=== PATIENT | male | born 1940 | race Caucasian/White ===

== ENCOUNTER 2019-08-10 17:43 | Inpatient (IN) ==
--- NOTE | 2019-08-10 18:37 | Emergency Department Note ---
Impression & Plan Difficulty with speech, Stroke-like symptoms ED Provider Note NAME: AIXA ALMODOVAR AGE: 78 SEX: M : 1940 ARRIVES VIA: Walk-In INFORMANT: [Patient] ED PROVIDER(S): [Chris Gonzalez MD] CHIEF COMPLAINT: Stroke symptoms HISTORY OF PRESENT ILLNESS: Patient is a 78-year-old male who presents with several episodes of strokelike symptoms. The patient states that 4 days ago for seconds, he had gibberish when he was speaking. This quickly resolved. No other associated symptoms. Patient states that 8 days ago he had a similar episode with his speech that lasted only seconds and then resolved. Patient states that 10 or 12 days ago he had an episode that lasted for a few seconds where he could not write. Again, this quickly resolved. The patient has never had a stroke. He was sent by his doctors office today for a stroke work-up. The patient has not had fever, cough or congestion. No shortness of breath. The patient does have chronic mild lower extremity edema, lef pain and some leg weakness chronically. He states that he stands for 8 hours at a time while at work and as result, his legs are always sore. He feels that his left leg may be slightly more weak than his right. The patient has not had vomiting or diarrhea, no urinary complaints. He is not on any blood thinners. He does admit that over the last few years he thinks he has become a more forgetful, he just cannot recall the names of things as quickly as he could when he was younger. REVIEW OF SYSTEMS: See HPI for pertinent positives and negatives. A total of ten systems were reviewed and were otherwise negative. PMHx/PSHx: See Below SOCIAL HISTORY: See Below. PHYSICAL EXAM: GENERAL: Patient is in no acute distress. HEENT: No acute trauma, normocephalic atraumatic, mucous membranes moist, no nasal congestion, no scleral icterus. NECK: No stridor, no adenopathy, no meningismus, trachea is midline. LUNGS: Clear to auscultation bilaterally, no wheeze, no rhonchi, breath sounds equal. HEART: Without murmurs gallops or rubs, regular rate and rhythm. ABDOMEN: Soft, nontender, bowel sounds positive, no hernias, no peritonitis. EXTREMITIES: No cyanosis, mild bilateral pedal edema, full range of motion of all the joints without pain or difficulty, no signs for acute trauma. NEUROLOGIC: Oriented x 3, no acute motor or sensory deficits, no focal weakness. No speech slur, no facial droop, no cerebellar dysfunction, no extremity drift. SKIN: No rash, no jaundice, no diaphoresis. DIFFERENTIAL DIAGNOSISInfection, dehydration, metabolic abnormality, hypo/hyperglycemia, stroke, TIA, electrolyte disturbance, anemia, hypoxia, cardiac sources, intracerebral event, toxicologic, neurologic, as well as other pathologies. EMERGENCY DEPARTMENT COURSE/PROCEDURES: ECG: Indication was possible stroke. The EKG shows a normal sinus rhythm with a rate of 77. There is no ST elevation, no PVCs. An old inferior infarct was noted. The QTc is 407. Continuous Cardiac Monitoring: An order was placed for continuous cardiac monitoring. The monitor shows a rate of 67 with normal sinus rhythm. MEDICAL DECISION MAKING: There is no leukocytosis or concerning anemia. No coagulopathy. No significant electrolyte abnormality or kidney failure. No worrisome liver enzyme elevation. EKG shows a sinus rhythm, no acute ischemia. Cardiac enzyme testing x1 is not consistent with acute cardiac injury. Brain MRI shows findings consistent with microvascular changes from aging, there was no acute stroke, no mass. On my exam, there were no focal neurologic findings. The patient was not febrile or toxic. Patient is currently asymptomatic. He has had 3 events though that sound consistent with TIA. I discussed the case with neurology on-call. They recommended a hospital stay and a full stroke work-up. Aspirin for now was the recommendation. I spoke to the patient, I talked with case management. The on-call hospitalist has been consulted. Patient is aware of all his findings thus far. Of note, the patient is clearly not a candidate for TPA. He is currently asymptomatic, his symptoms have been ongoing now for almost 2 weeks. 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 Beliefs That Will Affect Care: None Current Living Situation: Spouse Other Information That Helps Us Care for You: No Feels Safe at Home: Yes Safety Concerns: Feels Safe At This Time Smoking Status: Never smoker Hx Alcohol Use: No Hx Substance Use: No Allergies Allergies Allergy/AdvReac Type Severity Reaction Status Date / Time lisinopril AdvReac Mild COUGH Verified 08/10/19 18:36 Home Meds Home Medications Medication Instructions Recorded Confirmed calcium polycarbophil [Fiber 625 mg PO QAM 08/10/19 08/10/19 (calcium polycarbophil)] finasteride 5 mg PO QDD 08/10/19 08/10/19 hydrochlorothiazide 12.5 mg PO QDD 08/10/19 08/10/19 metoprolol succinate 25 mg PO QDD 08/10/19 08/10/19 multivitamin 1 tab PO QDD 08/10/19 08/10/19 terazosin 10 mg PO HS 08/10/19 08/10/19 Results & Data (ED) Vital Signs Vital Signs - 24 hr 08/10/19 17:47 08/10/19 18:51 08/10/19 20:43 Temperature 36.7 C Temperature Source Oral Pulse Rate 91 H 79 Pulse Rate [Apical] 69 Pulse Rate from SpO2 Sensor 78 Respiratory Rate 18 17 13 Blood Pressure 158/97 H 145/90 H Blood Pressure [Right Arm] 158/97 H Blood Pressure Mean 117 103 Blood Pressure Mean [Right Arm] 117 Pulse Oximetry 95 95 97 Oxygen Delivery Method Room Air Room Air Sepsis Recent Fever Within 48 Hours No Sepsis New/Unexplained Change in Mental Status No Sepsis Action Taken by Nursing No Action Required 08/10/19 21:52 Temperature Temperature Source Pulse Rate Pulse Rate [Apical] 66 Pulse Rate from SpO2 Sensor Respiratory Rate 14 Blood Pressure Blood Pressure [Right Arm] 136/94 Blood Pressure Mean Blood Pressure Mean [Right Arm] 108 Pulse Oximetry 94 Oxygen Delivery Method Room Air Sepsis Recent Fever Within 48 Hours Sepsis New/Unexplained Change in Mental Status Sepsis Action Taken by Alf Medications Current Medication List: was personally reviewed by me Laboratory Data Attestation: I reviewed the patient's lab results. Result diagrams: 08/10/19 18:50 08/10/19 18:50 Lab Results 08/10/19 08/10/19 08/10/19 Range/Units 18:50 18:50 18:50 WBC 7.65 (4.8-10.8) K/uL RBC 4.54 L (4.7-6.1) M/uL Hgb 13.3 L (14.0-18.0) g/dL Hct 40.0 L (42-52) % MCV 88.1 (80-100) fL MCH 29.3 (25-34) pg MCHC 33.3 (32-36) g/dL RDW Std Deviation 42.8 (36.4-46.3) fL RDW Coeff of Hugh 13.3 (11.5-14.5) % Plt Count 179 (130-400) K/uL MPV 9.9 (7.4-10.4) fL Immature Gran % (Auto) 0.3 % Neut % (Auto) 57.3 % Lymph % (Auto) 30.6 % [place] % (Auto) 7.3 % Eos % (Auto) 4.2 % Baso % (Auto) 0.3 % Immature Gran # (Auto) 0.02 (0.00-0.02) K/uL Neut # (Auto) 4.39 (1.4-6.5) K/uL Lymph # (Auto) 2.34 (1.2-3.4) K/uL [place] # (Auto) 0.56 (0.11-0.59) K/uL Eos # (Auto) 0.32 (0-0.5) K/uL Baso # (Auto) 0.02 (0-0.2) K/uL PT 10.9 (9.0-12.0) Seconds INR 1.0 (0.9-1.1) APTT 26.8 (21.0-31.0) Seconds PTT Ratio 1.0 Sodium 141 (136-145) mmol/L Potassium 3.8 (3.5-5.1) mmol/L Chloride 109 H (98-107) mmol/L Carbon Dioxide 27 (21-32) mmol/L Anion Gap 5.0 (3-11) BUN 32 H (7-18) mg/dl Creatinine 1.21 (0.6-1.4) mg/dl Est Cr Clr Drug Dosing 55.7 ml/min Est GFR ( Amer) 65.6 Est GFR (Non-Af Amer) 56.6 BUN/Creatinine Ratio 26.3 H (10-20) Glucose 109 H (70-99) mg/dl Calcium 9.0 (8.5-10.1) mg/dl Magnesium 2.4 (1.8-2.4) mg/dl Total Bilirubin 0.3 (0.2-1) mg/dl AST 38 H (15-37) U/L ALT 40 (12-78) U/L Alkaline Phosphatase 83 (45-117) U/L Troponin I < 0.015 (0-0.045) ng/ml Total Protein 7.6 (6.4-8.2) gm/dl Albumin 4.0 (3.4-5.0) gm/dl Globulin 3.6 (2.5-4.0) gm/dl Albumin/Globulin Ratio 1.1 (0.9-2) Administered Medications Sodium Chloride (Nss 1000ml) 1,000 mls @ 75 mls/hr IV .[id number] CRISPIN Stop: 09/09/19 23:40 Last Admin: 08/11/19 00:19 Dose: 75 mls/hr Documented by: [id number] Imaging Data Radiologist's Impression: MR brain wo con HISTORY: 78 years-old Male speech issues, writing issues, poss cva acute strokelike symptoms COMPARISON: None TECHNIQUE: Multiplanar multisequence MRI of the brain was obtained without the use of IV contrast. FINDINGS: Tree Surgeon Helper localizer images demonstrate no gross extracranial abnormality. There is no restricted diffusion to suggest acute or subacute infarct. Midline structures including the corpus callosum, brainstem, optic chiasm, pituitary and pineal glands appear unremarkable the sagittal T1 series. No cerebellar tonsillar herniation. No acute intracranial hemorrhage, midline shift, abnormal extra-axial collection, hydrocephalus or intracranial mass. Age-related involutional changes. Moderate T2/FLAIR hyperintensities throughout the white matter are suggestive of chronic microvascular ischemic disease. Major vascular flow voids are patent. Mastoid air cells are clear. Moderate mucosal thickening of the paranasal sinuses, most pronounced in the left frontal and sphenoid sinuses. Orbits, skull and soft tissues are unremarkable. IMPRESSION: 1. No acute intracranial abnormality, specifically there is no evidence of acute or subacute infarct. 2. Age-related involutional changes with moderate T2/FLAIR hyperintensities. Although nonspecific, these are suggestive of chronic microvascular ischemic disease. 3. Moderate paranasal sinus disease. Blood Pressure Blood Pressure Findings: Elevated blood pressure Blood Pressure Disposition: further management by hospitalist Discharge Plan Visit Data *Final* Discharge Date/Time: 08/10/19 23:20 Chief Complaint: Referred by Doctor Stated Complaint: MEMORY LOSS - LOSS OF WORDS ED Provider: Chris Gonzalez Discharge Problem: Difficulty with speech, Stroke-like symptoms Patient Disposition: Admitted As Inpatient Condition: Good Discharge Instructions Interventions: ED Discharge Assessment Last Done: 08/10/19 23:20
[2019-08-10 19:04] LABS: Basophils # (auto) 0.02 K/uL (0-0.2); Basophils % (auto) 0.3 %; Eosinophils # (auto) 0.32 K/uL (0-0.5); Eosinophils % (auto) 4.2 %; Hemoglobin 13.3 g/dL (14.0-18.0); Immature Granulocytes # (auto) 0.02 K/uL (0.00-0.02); Immature Granulocytes % (auto) 0.3 %; Lymphocytes # (auto) 2.34 K/uL (1.2-3.4); Lymphocytes % (auto) 30.6 %; Mean Corpuscular Hemoglobin 29.3 pg (25-34); Mean Corpuscular Hgb Conc 33.3 g/dL (32-36); Mean Corpuscular Volume 88.1 fL (80-100); Mean Platelet Volume 9.9 fL (7.4-10.4); Monocytes # (auto) 0.56 K/uL (0.11-0.59); Monocytes % (auto) 7.3 %; Neutrophils # (auto) 4.39 K/uL (1.4-6.5); Neutrophils % (auto) 57.3 %; Platelet Count 179 K/uL (130-400); RDW Coefficient of Variation 13.3 % (11.5-14.5); RDW Standard Deviation 42.8 fL (36.4-46.3); Red Blood Count 4.54 M/uL (4.7-6.1); White Blood Count 7.65 K/uL (4.8-10.8)
[2019-08-10 19:16] LABS: Partial Thromboplastin Time 26.8 Seconds (21.0-31.0); Prothrombin Time 10.9 Seconds (9.0-12.0)
[2019-08-10 19:19] LABS: Alanine Aminotransferase 40 U/L (12-78); Aspartate Aminotransferase 38 U/L (15-37); BUN Creatinine Ratio 26.3 (10-20); Blood Urea Nitrogen 32 mg/dl (7-18); Carbon Dioxide 27 mmol/L (21-32); Chloride 109 mmol/L (98-107); Creatinine Clr Calc Pharmacy 55.7 ml/min; Est GFR (African American) 65.6; Est GFR (Non-African American) 56.6; Glucose 109 mg/dl (70-99); Magnesium 2.4 mg/dl (1.8-2.4); Potassium 3.8 mmol/L (3.5-5.1); Sodium 141 mmol/L (136-145)
[2019-08-10 19:24] LABS: Albumin Globulin Ratio 1.1 (0.9-2); Alkaline Phosphatase 83 U/L (45-117); Bilirubin,Total 0.3 mg/dl (0.2-1); Globulin 3.6 gm/dl (2.5-4.0); Total Protein 7.6 gm/dl (6.4-8.2); Troponin I < 0.015 ng/ml (0-0.045)
--- NOTE | 2019-08-10 21:10 | Magnetic Resonance Report ---
MR brain wo con HISTORY: 78 years-old Male speech issues, writing issues, poss cva acute strokelike symptoms COMPARISON: None TECHNIQUE: Multiplanar multisequence MRI of the brain was obtained without the use of IV contrast. FINDINGS: Bulb Inspector localizer images demonstrate no gross extracranial abnormality. There is no restricted diffusio n to suggest acute or subacute infarct. Midline structures including the corpus callosum, brainstem, optic chiasm, pituitary and pineal glands appear unremarkable the sagittal T1 series. No cerebellar t onsillar herniation. No acute intracranial hemorrhage, midline shift, abnormal extra-axial collection, hydrocephalus or in tracranial mass. Age-related involutional changes. Moderate T2/FLAIR hyperintensities throughout the white matter are suggestive of chronic microvascular ischemic disease. Major vascular flow voids are patent. Mastoid air cells are clear. Moderate mucosal thickening of the paranasal sinuses, most prono unced in the left frontal and sphenoid sinuses. Orbits, skull and soft tissues are unremarkable. IMPRESSION: 1. No acute intracranial abnormality, specifically there is no evidence of acute or subacute infarct. 2. Age-related involutional changes with moderate T2/FLAIR hyperintensities. Although nonspecific, th carlos are suggestive of chronic microvascular ischemic disease. 3. Moderate paranasal sinus disease. ACT 112: Negative or not required by law. The above report was generated using voice recognition software. It may contain grammatical, syntax o r spelling errors. Electronically signed by: Glynn Arredondo M.D. 08/10/2019 9:08 PM
--- NOTE | 2019-08-10 23:39 | History and Physical Report ---
DATE OF ADMISSION: 08/10/2019 CHIEF COMPLAINT: Problems with the speech. HISTORY OF PRESENT ILLNESS: This is a 78-year-old male with past medical history significant for gout, dilated aortic root, essential hypertension, BPH, chronic pain of the left knee, history of colon polyps who presents with issues with the speech. The patient says couple of times in last 1-2 weeks, he had 2 episodes of gibberish speech lasted for few seconds. The patient had last episode about 4 days ago. Since then he is doing okay. Denies any headache, no dizziness, no blurred vision, no earache, no runny nose, no sore throat, no cough, no dysphagia. Appetite is okay. No chest pain, no shortness of breath, no nausea, no vomiting, no abdominal pain. Normal bowel and bladder movements. Has some mild edema in lower extremities. No weakness of the hands or legs. Ambulating okay. Lives with his . ALLERGIES: SERJIO INHIBITORS. PAST MEDICAL HISTORY: As mentioned above. PAST SURGICAL HISTORY: Colonoscopy with biopsy, cystoscopy, extensive facial surgery for a cut on garage store, removal of the pilonidal cyst, tonsillectomy, adenoidectomy, right shoulder surgery. MEDICATIONS: The patient is on hydrochlorothiazide 12.5 mg p.o. daily, terazosin 10 mg p.o. at bedtime, Proscar 5 mg p.o. daily, losartan 50 mg p.o. daily, Toprol-XL 25 mg p.o. daily, calcium polycarbophil 625 mg p.o. daily, ibuprofen as needed, multivitamin 1 tablet daily. FAMILY HISTORY: Significant for father of [place] at age of 60, has history of hypertension. Son has allergies, sister has ulcerative colitis, uncle has prostate cancer. SOCIAL HISTORY: , lives with . No smoking, no alcohol, no drug use. REVIEW OF SYMPTOMS: As per HPI. Rest of review of symptoms negative. PHYSICAL EXAMINATION: GENERAL: The patient is of moderate built, not in acute distress. VITAL SIGNS: Temperature 36.7, pulse 66, respiratory rate 14, blood pressure 136/94, oxygen 94% room air. HEENT: No pallor, no icterus. Pupils equal, round, reactive to light. Extraocular muscles intact. NECK: No JVD, no neck masses, no carotid bruits. CARDIOVASCULAR: S1, S2 heard, regular rate and rhythm, no murmur, no gallop. RESPIRATORY SYSTEM: Normal AP diameter. No accessory muscle use. No wheezing, no crackles. ABDOMEN: Soft, bowel sounds present, nontender. No distention. CENTRAL NERVOUS SYSTEM: Cranial nerves II-XII grossly intact, power 5/5 in all extremities. No pronator drift. Able to lift and hold his all lower extremities. Coordination of movements normal. Sensation is intact. Position sense intact. EXTREMITIES: Mild pedal edema present, no erythema seen. LABORATORY DATA: WBC 7.6, hemoglobin 13.3, hematocrit 40, platelets 179. PT 10.9, INR 1, APTT 26.8. Sodium 141, potassium 3.8, chloride 109, bicarbonate 27, BUN 32, creatinine 1.21, serum glucose 109, calcium 9, magnesium 2.4, total bilirubin 0.3, AST 38, ALT 40, alkaline phosphatase 83, troponin I less than 0.015. Brain MRI, no acute intracranial abnormality. EKG: Normal sinus rhythm, rate of 77, no acute ST changes seen. ASSESSMENT AND PLAN: This is a 78-year-old male who presents with stroke-like symptoms. 1. Stroke like symptoms: The patient has couple of episodes of gibberish speech lasted for a few seconds couple of times in last 2 weeks, last one was about 4 days ago. The patient's MRI scan in the ER was unremarkable. ER physician notified neurology brickmason helper and advised for aspirin and full stroke workup. We will keep and observe patient in the med/surg tele. We will get a CTA of the head and neck, echocardiogram, speech evaluation, PT, OT evaluation as per protocol. Neuro consult in a.m. Continue aspirin. Follow fasting lipid profile and hemoglobin A1c levels. 2. History of hypertension. Continue Toprol-XL, terazosin, hydrochlorothiazide. Also patient seems to be also on losartan, which need to be conform and monitor his blood pressure. 3. BPH: Continue finasteride and terazosin. 4. History of dilated aortic root: Needs followup. 5. Deep venous thrombosis prophylaxis, sequential compression devices for now. 6. Disposition: Observe in med/surg tele. Level 1 full code. Expect to discharge home and follow with family doctor. [facility]
[2019-08-10] MEDS ORDERED: ONDANSETRON INJ 2 MG/ML 2 ML VIAL IV PRN (23:41)
[2019-08-10] MEDS ORDERED: POLYETHYLENE (MIRALAX) 17 GM PACK PO PRN (23:41)
[2019-08-10] MEDS ORDERED: ACETAMINOPHEN 325 MG TAB PO PRN (23:41)
[2019-08-10] MEDS ORDERED: SODIUM CHLORIDE 0.9% 1000ML 1,000 ML IV SCH (23:41)
[2019-08-10] MEDS ORDERED: NITROGLYCERIN SL 0.4 MG/TAB TAB SL PRN (23:41)
[2019-08-10] MEDS ORDERED: PHARMACIST DISCHARGE MED REC CONSULT PRN (23:41)
[2019-08-11 06:09] LABS: Basophils # (auto) 0.02 K/uL (0-0.2); Basophils % (auto) 0.3 %; Eosinophils # (auto) 0.29 K/uL (0-0.5); Eosinophils % (auto) 4.4 %; Hematocrit (blood only) 40.1 % (42-52); Hemoglobin 12.9 g/dL (14.0-18.0); Immature Granulocytes # (auto) 0.01 K/uL (0.00-0.02); Immature Granulocytes % (auto) 0.2 %; Lymphocytes # (auto) 2.13 K/uL (1.2-3.4); Lymphocytes % (auto) 32.6 %; Mean Corpuscular Hemoglobin 28.6 pg (25-34); Mean Corpuscular Hgb Conc 32.2 g/dL (32-36); Mean Corpuscular Volume 88.9 fL (80-100); Mean Platelet Volume 9.8 fL (7.4-10.4); Monocytes # (auto) 0.67 K/uL (0.11-0.59); Monocytes % (auto) 10.2 %; Neutrophils # (auto) 3.42 K/uL (1.4-6.5); Neutrophils % (auto) 52.3 %; Platelet Count 171 K/uL (130-400); RDW Coefficient of Variation 13.3 % (11.5-14.5); RDW Standard Deviation 43.2 fL (36.4-46.3); Red Blood Count 4.51 M/uL (4.7-6.1); White Blood Count 6.54 K/uL (4.8-10.8)
--- NOTE | 2019-08-11 06:20 | Communication Note ---
Date of Service: August 11, 2019 I am aware of this case having discussed it last evening with the ER staff and hav reviewed the admission note and plans for further evaluation of recurrent episodes of brief duration aphasia over the past two weeks in a man with some vascular riak factore and who has not been on antplatelet rx He needs CTA of head and neck, Echo, monitor for a fib, lipids etc and rx with asa for now until diagnostics complete and may need dual therapy with plavix and asa at some point for the traditional 21 days I willl be in later this afternoon to review the studies and examine the pa
[2019-08-11 06:36] LABS: Estimated Average Glucose 120 mg/dl; Hemoglobin A1C 5.8 % (4.5-5.6)
[2019-08-11 06:44] LABS: BUN Creatinine Ratio 22.8 (10-20); Calcium 8.3 mg/dl (8.5-10.1); Creatinine Clr Calc Pharmacy 64.5 ml/min; Est GFR (African American) 79.7; Est GFR (Non-African American) 68.8
[2019-08-11] MEDS ORDERED: CALCIUM POLYCARBOPHIL 625MG TAB PO SCH (09:00)
[2019-08-11] MEDS ORDERED: ASPIRIN 81 MG ECTAB PO SCH (09:00)
[2019-08-11] MEDS ORDERED: ATORVASTATIN 40 MG TAB PO SCH ×2 (09:00→10:00)
--- NOTE | 2019-08-11 09:21 | Hospitalist Progress Note ---
Date of Service August 11, 2019 Assessment & Plan (1) Difficulty with speech: (2) Stroke-like symptoms: (3) Greater trochanteric bursitis of left hip: (4) TIA (transient ischemic attack): MRI negative, Dr Rainey to see, Atorvastatin, ASA, Possibly Plavix later, CTA today, Echo done Labs checked ROS-No Headache, No Visual Changes, No Nausea, No Vomiting, No Fever, No Chills, No Neck Pain or Stiffness, No Chest Pain, No Palpitations, No SOB, No LIGHT, No Cough, No Sputum, No Wheezing, No Abdominal Pain, No Diarrhea, No Hematemesis, No Hemoptysis, No Unexpected Weight Loss, No Flank pain, No Melena, No Hematochezia, No Frequency, No Urgency, No Burning, No Hematuria, No Rashes, No Diaphoresis. Appetite is Normal Physical Exam Gen-AAO x 3, NAD, Afebrile Head-NCAT, EOMI, PERRLA, Anicteric Sclera, No Posterior Pharyngeal Erythema Neck-Supple, No JVD, No Thyromegaly, No Masses, No LAD, No Bruits Lungs-Clear to Auscultation Bilaterally, No Rales, No Rhonchi, No Wheezing, No Crepitus Chest-No S4, +S1, +S2, No S3, No Murmurs, No Rubs, No Gallops, No Ectopy Abdomen-Soft, Bowel Sounds Present, Non Tender, Non Distended, No Hepatomegaly, No Splenomegaly, No Palpable Masses, No Rebound, No Rigidity, No Guarding Musculoskeletal-Full Range of Motion Bilaterally, No CVAT Extremities-No Cyanosis, No Clubbing, No Edema Nuero-Cranial Nerves II-XII grossly intact, Motor WNL, DTRs WNL, Strength WNL, Non Focal Psych-Normal Mood Admission and Anticipated Discharge Date Admission Date: August 10, 2019 Anticipated date of discharge: 08/12/19 Results & Data Results & Data ([facility]) Vital Signs (Past 12 Hours) Vital Signs Temp Pulse Pulse Resp BP Pulse Ox 08/11/19 07:49 36.8 C 65 18 166/97 H 90 08/11/19 07:24 69 08/11/19 02:48 36.6 C 65 19 155/88 H 94 08/10/19 23:39 67 05/27/20 23:30 36.7 C 66 18 172/86 H 92 08/10/19 23:05 78 18 160/79 H 96 08/10/19 21:52 66 14 136/94 94
[2019-08-11] MEDS ORDERED: OPTIRAY 320 125ml IV PRN (10:52)
--- NOTE | 2019-08-11 11:07 | CT Scan Report ---
CT angio head w con HISTORY: Mental status change tia TECHNIQUE: Multiaxial CT angiography of the head was performed IV contrast: 100 cc nonionic Maximu m intensity projection images were also obtained. A dose lowering technique was utilized adhering to the principles of ALARA. COMPARISON: None. FINDINGS: There is no mass, hematoma, midline shift, or acute infarct. Visualized intracranial continuous improvement intern al carotid arteries, distal vertebral arteries, and basilar artery are widely patent. There is no sig nificant stenosis, occlusion, or aneurysm seen within the bilateral ACAs, MCAs, or runway model. Moderate jake que formation left carotid siphon with no evidence for high-grade stenosis. IMPRESSION: 1. Scattered plaque formation. 2. No significant stenotic process. ACT 112: Negative or not required by law. The above report was generated using voice recognition software. It may contain grammatical, syntax or spelling errors. Electronically signed by: Carlos Blanco M.D. 08/11/2019 11:05 AM
--- NOTE | 2019-08-11 11:10 | CT Scan Report ---
CT angio neck with con CLINICAL HISTORY: 78 years-old Male with tia. Acute strokelike symptoms COMPARISON STUDY: CTA of the head of same day, brain MRI 08/10/2019 TECHNIQUE: Following the IV administration of 120 mL of Optiray 320, CT angiogram of the neck was per formed from the aortic arch to the skull base. Images are reviewed in the axial, sagittal, and martini l planes. 3-D MIPS images are created and assessed. IV contrast was administered without complication . All measurements were calculated based on NASCET criteria. A dose lowering technique was utilized adhering to the principles of ALARA. FINDINGS: The opacified pulmonary arterial tree is unremarkable. There are opacified collateral venous structur es noted involving the left supraclavicular distribution. Unremarkable appearance of the thoracic aor tic arch. Patency of the bilateral imaged subclavian arteries. There is mild calcified plaque at the origin of the left subclavian artery. The innominate artery and common carotid arteries are patent. T here is mild mixed plaque of the right carotid bulb without significant stenosis. Bilateral internal carotid arteries are widely patent. Mild calcified plaque of the left cavernous and supraclinoid segm ents. The vertebral arteries are codominant and are widely patent. Mild calcified plaque at the origi n of the left vertebral artery without significant stenosis. The imaged basilar artery is also patent . origin of the left posterior cerebral artery. The left transverse sinus appears hypoplastic. The lung apices are clear without pneumothorax. Mildly enlarged and heterogeneous appearance of the t hyroid. No adenopathy. The soft tissues are unremarkable. Multilevel degenerative changes of the cerv ical spine. Opacified left sphenoid sinus. IMPRESSION:Unremarkable CTA of the neck. ACT 112: Negative or not required by law. The above report was generated using voice recognition software. It may contain grammatical, syntax o r spelling errors. Electronically signed by: Glynn Arredondo M.D. 08/11/2019 11:09 AM
--- NOTE | 2019-08-11 16:18 | Communication Note ---
Date of Service: August 11, 2019 I just completed a visit with Mr. Pacheco, reviewed his CT angiographic studies of the neck and head, his echo, his laboratory studies and am pleased to report that all findings are essentially normal with the exception of some intracranial atherosclerotic changes (not unexpected for man of his age) and for slightly dilated proximal ascending aorta at 4.2 cm which really is marginal for aortic dilatation versus early aneurysm and has nothing to do with his presentation he specifically has not had any findings on echocardiography to suggest a potential source of emboli, has not had any evidence for atrial fibrillation but has been little hypertensive since admission the setting apparently normotension on an outpatient basis. He is on low-dose metoprolol primarily for protection against further aortic root dilatation, some finasteride for BPH and little or no other agents for dyslipidemia etc. His history was reviewed and certainly is suggestive of an expressive aphasia with neologisms paraphasias all lasting several seconds without any altered comprehension of speech and perhaps with some articulatory issues but no other neurologic symptoms of localizing value His exam today is absolutely normal. His blood pressure is 151/97 pulse is 76 and regular he is awake alert oriented in 3 spheres quite fluent in conversation with absolutely no word finding issues, neologisms or paraphasias and without facial asymmetry articulatory disturbance eye movement disturbance visual field loss deficits in gait station coordination, reflex asymmetry weakness etc. At this point I would suggest discharged on a single aspirin a day which she was not taking and follow-up with his primary care physician for perhaps more aggressive management of any dyslipidemia that may be evident. In theory he should have an LDL of around [address] Motta his primary care physician is going to have to be the immigration judge of whether this is necessary based on his general health issues Neurology needs to see him in about 6 weeks and obviously if he has recurrent episodes then we may do some further investigation such as a 48-hour EEG to see if he might be having some atypical local spike activity from his left hemisphere but call these events seizures when their nature is more typical of TIAs would be a bit of a stretch He can be discharged today unless the internal medicine group feels he needs further observation of his blood pressure etc. Troy Rainey MD
--- NOTE | 2019-08-11 16:25 | Discharge Summary ---
Date of Service August 11, 2019 Admission HPI Per Admitting Provider 78-year-old male with past medical history significant for gout, dilated aortic root, essential hypertension, BPH, chronic pain of the left knee, history of colon polyps who presents with issues with the speech. The patient says couple of times in last 1-2 weeks, he had 2 episodes of gibberish speech lasted for few seconds. The patient had last episode about 4 days ago. Since then he is doing okay. Denies any headache, no dizziness, no blurred vision, no earache, no runny nose, no sore throat, no cough, no dysphagia. Appetite is okay. No chest pain, no shortness of breath, no nausea, no vomiting, no abdominal pain. Normal bowel and bladder movements. Has some mild edema in lower extremities. No weakness of the hands or legs. Ambulating okay. Lives with his . Admission Exam Per Admitting Provider Physical Exam Gen-AAO x 3, NAD, Afebrile Head-NCAT, EOMI, PERRLA, Anicteric Sclera, No Posterior Pharyngeal Erythema Neck-Supple, No JVD, No Thyromegaly, No Masses, No LAD, No Bruits Lungs-Clear to Auscultation Bilaterally, No Rales, No Rhonchi, No Wheezing, No Crepitus Chest-No S4, +S1, +S2, No S3, No Murmurs, No Rubs, No Gallops, No Ectopy Abdomen-Soft, Bowel Sounds Present, Non Tender, Non Distended, No Hepatomegaly, No Splenomegaly, No Palpable Masses, No Rebound, No Rigidity, No Guarding Musculoskeletal-Full Range of Motion Bilaterally, No CVAT Extremities-No Cyanosis, No Clubbing, No Edema Nuero-Cranial Nerves II-XII grossly intact, Motor WNL, DTRs WNL, Strength WNL, Non Focal Psych-Normal Mood Principal Diagnosis (1) Difficulty with speech: (2) Stroke-like symptoms: (3) Greater trochanteric bursitis of left hip: (4) TIA (transient ischemic attack): Discharge Exam ROS-No Headache, No Visual Changes, No Nausea, No Vomiting, No Fever, No Chills, No Neck Pain or Stiffness, No Chest Pain, No Palpitations, No SOB, No LIGHT, No Cough, No Sputum, No Wheezing, No Abdominal Pain, No Diarrhea, No Hematemesis, No Hemoptysis, No Unexpected Weight Loss, No Flank pain, No Melena, No Hematochezia, No Frequency, No Urgency, No Burning, No Hematuria, No Rashes, No Diaphoresis. Appetite is Normal Physical Exam Gen-AAO x 3, NAD, Afebrile Head-NCAT, EOMI, PERRLA, Anicteric Sclera, No Posterior Pharyngeal Erythema Neck-Supple, No JVD, No Thyromegaly, No Masses, No LAD, No Bruits Lungs-Clear to Auscultation Bilaterally, No Rales, No Rhonchi, No Wheezing, No Crepitus Chest-No S4, +S1, +S2, No S3, No Murmurs, No Rubs, No Gallops, No Ectopy Abdomen-Soft, Bowel Sounds Present, Non Tender, Non Distended, No Hepatomegaly, No Splenomegaly, No Palpable Masses, No Rebound, No Rigidity, No Guarding Musculoskeletal-Full Range of Motion Bilaterally, No CVAT Extremities-No Cyanosis, No Clubbing, No Edema Nuero-Cranial Nerves II-XII grossly intact, Motor WNL, DTRs WNL, Strength WNL, Non Focal Psych-Normal Mood Discharge Data Allergies Allergy/AdvReac Type Severity Reaction Status Date / Time lisinopril AdvReac Mild COUGH Verified 08/10/19 18:36 Consultations 08/10/19 22:01 ED Decision to Admit Stat 08/10/19 23:41 Consult Case Management - Discharge Planning Routine 08/11/19 08:00 Consult Neurology Routine Ordered Studies 08/10/19 18:28 MR brain wo con Stat 08/10/19 23:41 CT angio head w con Routine CT angio neck with con Routine 08/11/19 08/11/19 08/11/19 Range/Units 05:49 05:49 05:49 WBC 6.54 (4.8-10.8) K/uL RBC 4.51 L (4.7-6.1) M/uL Hgb 12.9 L (14.0-18.0) g/dL Hct 40.1 L (42-52) % MCV 88.9 (80-100) fL MCH 28.6 (25-34) pg MCHC 32.2 (32-36) g/dL RDW Std Deviation 43.2 (36.4-46.3) fL RDW Coeff of Hugh 13.3 (11.5-14.5) % Plt Count 171 (130-400) K/uL MPV 9.8 (7.4-10.4) fL Immature Gran % (Auto) 0.2 % Neut % (Auto) 52.3 % Lymph % (Auto) 32.6 % Williams % (Auto) 10.2 % Eos % (Auto) 4.4 % Baso % (Auto) 0.3 % Immature Gran # (Auto) 0.01 (0.00-0.02) K/uL Neut # (Auto) 3.42 (1.4-6.5) K/uL Lymph # (Auto) 2.13 (1.2-3.4) K/uL Williams # (Auto) 0.67 H (0.11-0.59) K/uL Eos # (Auto) 0.29 (0-0.5) K/uL Baso # (Auto) 0.02 (0-0.2) K/uL PT (9.0-12.0) Seconds INR (0.9-1.1) APTT (21.0-31.0) Seconds PTT Ratio Sodium 143 (136-145) mmol/L Potassium 4.0 (3.5-5.1) mmol/L Chloride 112 H (98-107) mmol/L Carbon Dioxide 28 (21-32) mmol/L Anion Gap 3.0 (3-11) BUN 24 H (7-18) mg/dl Creatinine 1.03 (0.6-1.4) mg/dl Est Cr Clr Drug Dosing 64.5 ml/min Est GFR ( Amer) 79.7 Est GFR (Non-Af Amer) 68.8 BUN/Creatinine Ratio 22.8 H (10-20) Glucose 96 (70-99) mg/dl Estimat Average Glucose 120 mg/dl Hemoglobin A1c 5.8 H (4.5-5.6) % Calcium 8.3 L (8.5-10.1) mg/dl Magnesium (1.8-2.4) mg/dl Total Bilirubin (0.2-1) mg/dl AST (15-37) U/L ALT (12-78) U/L Alkaline Phosphatase (45-117) U/L Troponin I (0-0.045) ng/ml Total Protein (6.4-8.2) gm/dl Albumin (3.4-5.0) gm/dl Globulin (2.5-4.0) gm/dl Albumin/Globulin Ratio (0.9-2) Triglycerides 76 (0-150) mg/dl Cholesterol 127 (0-200) mg/dl LDL Cholesterol, Calc 80 mg/dl VLDL Cholesterol, Calc 15 mg/dl HDL Cholesterol 32 mg/dl Cholesterol/HDL Ratio 4 08/10/19 08/10/19 08/10/19 Range/Units 18:50 18:50 18:50 WBC 7.65 (4.8-10.8) K/uL RBC 4.54 L (4.7-6.1) M/uL Hgb 13.3 L (14.0-18.0) g/dL Hct 40.0 L (42-52) % MCV 88.1 (80-100) fL MCH 29.3 (25-34) pg MCHC 33.3 (32-36) g/dL RDW Std Deviation 42.8 (36.4-46.3) fL RDW Coeff of Hugh 13.3 (11.5-14.5) % Plt Count 179 (130-400) K/uL MPV 9.9 (7.4-10.4) fL Immature Gran % (Auto) 0.3 % Neut % (Auto) 57.3 % Lymph % (Auto) 30.6 % Williams % (Auto) 7.3 % Eos % (Auto) 4.2 % Baso % (Auto) 0.3 % Immature Gran # (Auto) 0.02 (0.00-0.02) K/uL Neut # (Auto) 4.39 (1.4-6.5) K/uL Lymph # (Auto) 2.34 (1.2-3.4) K/uL Williams # (Auto) 0.56 (0.11-0.59) K/uL Eos # (Auto) 0.32 (0-0.5) K/uL Baso # (Auto) 0.02 (0-0.2) K/uL PT 10.9 (9.0-12.0) Seconds INR 1.0 (0.9-1.1) APTT 26.8 (21.0-31.0) Seconds PTT Ratio 1.0 Sodium 141 (136-145) mmol/L Potassium 3.8 (3.5-5.1) mmol/L Chloride 109 H (98-107) mmol/L Carbon Dioxide 27 (21-32) mmol/L Anion Gap 5.0 (3-11) BUN 32 H (7-18) mg/dl Creatinine 1.21 (0.6-1.4) mg/dl Est Cr Clr Drug Dosing 55.7 ml/min Est GFR ( Amer) 65.6 Est GFR (Non-Af Amer) 56.6 BUN/Creatinine Ratio 26.3 H (10-20) Glucose 109 H (70-99) mg/dl Estimat Average Glucose mg/dl Hemoglobin A1c (4.5-5.6) % Calcium 9.0 (8.5-10.1) mg/dl Magnesium 2.4 (1.8-2.4) mg/dl Total Bilirubin 0.3 (0.2-1) mg/dl AST 38 H (15-37) U/L ALT 40 (12-78) U/L Alkaline Phosphatase 83 (45-117) U/L Troponin I < 0.015 (0-0.045) ng/ml Total Protein 7.6 (6.4-8.2) gm/dl Albumin 4.0 (3.4-5.0) gm/dl Globulin 3.6 (2.5-4.0) gm/dl Albumin/Globulin Ratio 1.1 (0.9-2) Triglycerides (0-150) mg/dl Cholesterol (0-200) mg/dl LDL Cholesterol, Calc mg/dl VLDL Cholesterol, Calc mg/dl HDL Cholesterol mg/dl Cholesterol/HDL Ratio Hospital Course (1) Difficulty with speech: (2) Stroke-like symptoms: (3) Greater trochanteric bursitis of left hip: (4) TIA (transient ischemic attack): MRI negative, CTA Head & Neck are negative, Dr Rainey will see in 6 weeks, Atorvastatin per primary MD, ASA, DC home Total Time Total Time Spent Total Time Spent (In Minutes): 45 mins Total Time Includes: Examination of the Patient, Discharge Planning, Medication Reconciliation and Communication With Other Providers Discharge Plan Discharge Items Patient Disposition: Home - Self-Care Reason For Visit: TIA Discharge Diagnosis: (1) Difficulty with speech: (2) Stroke-like symptoms: (3) Greater trochanteric bursitis of left hip: (4) TIA (transient ischemic attack): Condition on Discharge: Good Activity: Resume your previous activity Lifting: Gradually increase as tolerated Bathing: No limitations Sexual Activity: When tolerated Exercise/Sports: None Driving/Machine Use: No limitations Weightbearing: Full weightbearing Non-emergency contact: Primary Care Provider and Neurologist Call non-emergency contact if: you have any medication questions Follow-up/Referrals: Lamine Motta MD [Primary Care Provider] - Troy Rainey MD [Physician] - (6 weeks) Diet: Heart Healthy Addtl Attending Provider Instructions: Take your ASA Stand-Alone Forms: [employer], Smoking Cessation Medications and DC Order Prescriptions: New aspirin 81 mg Tablet,Delayed Release (Dr/Ec) 81 mg PO QAM Qty: 30 RF: 0 Continued multivitamin Tablet 1 tab PO QDD RF: 0 calcium polycarbophil [Fiber (calcium polycarbophil)] 625 mg Tablet 625 mg PO QAM RF: 0 metoprolol succinate 25 mg Tablet Extended Release 24 Hr 25 mg PO QDD RF: 0 terazosin 10 mg Capsule 10 mg PO HS RF: 0 finasteride 5 mg Tablet 5 mg PO QDD RF: 0 hydrochlorothiazide 12.5 mg Tablet 12.5 mg PO QDD RF: 0 Discharge Orders: Discharge Order (Routine); Ordered 08/11/19 Ordered By: Ki Louis Admission Data Admit Date/Time: 08/10/19 22:53 Attending Provider: Ki Louis Admit Provider: Evan Mcginnis Primary Care Provider: Lamine Motta Other Providers: Evan Mcginnis ; Troy Rainey
[2019-08-11] MEDS ORDERED: MULTIVITAMIN TAB PO SCH (16:30)
[2019-08-11] MEDS ORDERED: METOPROLOL SUCC 25MG EXT REL TAB PO SCH (16:30)
[2019-08-11] MEDS ORDERED: FINASTERIDE 5 MG TAB PO SCH (16:30)
[2019-08-11] MEDS ORDERED: hydroCHLOROthiazide 25 MG TAB PO SCH (16:30)
--- NOTE | 2019-08-11 16:49 | Pharmacy Report ---
Pharmacist Stroke Counseling - Date of Service August 11, 2019 - Scope: Pharmacy has been consulted to provide medication discharge counseling for this patient admitted with stroke-like symptoms as per the Pharmacist Discharge Counseling for Stroke Patients Protocol. - Medications on Discharge: Home Medications Medication Instructions Recorded Confirmed calcium polycarbophil [Fiber 625 mg PO QAM 08/10/19 08/10/19 (calcium polycarbophil)] finasteride 5 mg PO QDD 08/10/19 08/10/19 hydrochlorothiazide 12.5 mg PO QDD 08/10/19 08/10/19 metoprolol succinate 25 mg PO QDD 08/10/19 08/10/19 multivitamin 1 tab PO QDD 08/10/19 08/10/19 terazosin 10 mg PO HS 08/10/19 08/10/19 New Rx's Medication Instructions Recorded aspirin 81 mg PO QAM #30 tab 08/11/19 - Action: The above medications, specifically ones for stroke treatment/prophylaxis, have been reviewed in detail with the patient prior to discharge. This includes indication, common adverse reactions, drug interactions, and medication administration. Medication counseling has been employed using the teach-back method to ensure understanding. - Outcome: The patient has demonstrated understanding of the medications. Please note, they are aware that the pharmacist will call them within 72 hours post-discharge to confirm that the appropriate medications are being taken and a nswer any further medication related questions the patient might have at that time. Contact information Individual to be contacted: self Relationship to patient (if applicable): n/a Phone number: [phone] Best time to call: Thursday after 2 pm or Thursday all day Additional comments: N/A Thank you for allowing pharmacy to be involved in the care of this patient. Please call [phone] or [phone] with any additional questions
[2019-08-11] MEDS ORDERED: STROKE PATIENT DISCHARGE ONE (17:00)
[2019-08-11] MEDS ORDERED: TERAZOSIN HCL 5 MG CAP PO SCH (21:00)
--- NOTE | 2019-08-11 22:14 | Electrocardiogram Report ---
Test Reason : Blood Pressure : / mmHG Vent. Rate : 077 BPM Atrial Rate : 077 BPM P-R Int : 200 ms QRS Dur : 084 ms QT Int : 360 ms P-R-T Axes : 026 -09 -02 degrees QTc Int : 407 ms Normal sinus rhythm Possible Inferior infarct , age undetermined Abnormal ECG When compared with ECG of 31-OCT-2015 15:27, Inferior infarct is now Present Confirmed by Rick Romo ([id number]) on 08/11/2019 10:13:28 PM Referred By: Lamine Motta Confirmed By:Rick Romo
== END 2019-08-11 17:40 | disposition home or self-care (01) | DRG 92 ==
LOC: ED 17:43 → 2N 22:53